=== PATIENT | male | born 1985 | race Caucasian/White ===

== ENCOUNTER 2017-06-07 21:48 | Emergency (ER) | payer OTHER ==
--- NOTE | 2017-06-07 22:02 | ERPHSYRPT ---
- History of Present Illness Time Seen by Provider: 06/07/17 21:58 Historian: patient Physician History: 31-year-old male without any significant past medical history was working in his basement and while crawling he started having a right side abdominal pain around the belt line. So he came to the emergency room. He denies any nausea, vomiting, diarrhea, constipation, or any other symptoms. Timing/Duration: today Activities at Onset: activity Quality: cramping Abdominal Pain Onset Location: generalized abdomen Pain Radiation: no radiation Severity of Pain-Max: mild Severity of Pain-Current: mild Modifying Factors: Improves With: nothing Associated Symptoms: denies symptoms Previous symptoms: no prior history Allergies/Adverse Reactions: cyclobenzaprine HCl [From Flexeril] Allergy (Intermediate, Verified 11/04/14 19: 26) Swelling Sulfa (Sulfonamide Antibiotics) Allergy (Intermediate, Verified 11/04/14 19:26) Swelling Hx Tetanus, Diphtheria Vaccination/Date Given: Yes Hx Influenza Vaccination/Date Given: No Hx Pneumococcal Vaccination/Date Given: No - Review of Systems Constitutional: No Fever, No Chills Eyes: No Symptoms Ears, Nose, & Throat: No Symptoms Respiratory: No Cough, No Dyspnea Cardiac: No Chest Pain, No Edema, No Syncope Abdominal/Gastrointestinal: Abdominal Pain, No Nausea, No Vomiting, No Diarrhea Genitourinary Symptoms: No Dysuria Musculoskeletal: No Back Pain, No Neck Pain Skin: No Rash Neurological: No Dizziness, No Focal Weakness, No Sensory Changes Psychological: No Symptoms Endocrine: No Symptoms All Other Systems: Reviewed and Negative - Past Medical History Pertinent Past Medical History: No - Past Surgical History Past Surgical History: No - Social History Smoking Status: Never smoker Exposure to second hand smoke: No Drug Use: none Patient Lives Alone: No - Physical Exam General Appearance: no apparent distress, alert Eye Exam: PERRL/EOMI, eyes nml inspection Ears, Nose, Throat Exam: normal ENT inspection, pharynx normal, moist mucous membranes Neck Exam: normal inspection, non-tender, supple, full range of motion Respiratory Exam: normal breath sounds, lungs clear, No respiratory distress Cardiovascular Exam: regular rate/rhythm, normal heart sounds Gastrointestinal/Abdomen Exam: soft, No tenderness, No mass Back Exam: normal inspection, normal range of motion, No CVA tenderness, No vertebral tenderness Extremity Exam: normal inspection, normal range of motion, pelvis stable Neurologic Exam: alert, oriented x 3, cooperative, normal mood/affect, nml cerebellar function, sensation nml, No motor deficits Skin Exam: normal color, warm, dry - Course Nursing assessment & vital signs reviewed: Yes - Progress Progress: unchanged Counseled pt/family regarding: diagnosis, need for follow-up - Departure Time of Disposition: 22:01 Departure Disposition: Home Clinical Impression: Strain of abdominal muscle Qualifiers: Encounter type: initial encounter Qualified Code(s): S39.011A - Strain of muscle, fascia and tendon of abdomen, initial encounter Condition: Stable Critical Care Time: No Referrals: SAMMIE MANJARREZ [Primary Care Provider] - Instructions: Abdominal Muscle Strain Additional Instructions: Use abdominal binder for next 2-3 days, while working. Use stool softener if you have a constipation problem because that can increase your pain in the muscle strain area. Tried to avoid coughing too hard. If symptoms get worse. Contact your primary care physician for further workup.
[2017-06-07 22:04] VITALS: BP 136/88; PULSE 88; O2SAT 98
[2017-06-07] MEDS ORDERED: Lopressor 25MG Tab PO ONE (22:05)
[2017-06-07] MEDS ORDERED: Lopressor 25MG Tab ONE (22:18)
== END 2017-06-07 22:15 | disposition home or self-care (01) ==
LOC: ED 21:48
DX: S39.011A Strain of muscle, fascia and tendon of abdomen, initial encounter (principal); R10.9 Unspecified abdominal pain
CPT/HCPCS: 99283; L0625; A9270-GY

== ENCOUNTER 2017-06-09 00:25 | Emergency (ER) | payer OTHER ==
[2017-06-09 00:36] VITALS: BP 142/87; PULSE 97; O2SAT 100
--- NOTE | 2017-06-09 00:48 | ERPHSYRPT ---
- History of Present Illness Time Seen by Provider: 06/09/17 00:46 Historian: patient Exam Limitations: no limitations Physician History: c/o abdominal pain and strain since yesterday, patient was in ER yesterday with same complaints and was diagnosed with abdominal strain, Timing/Duration: yesterday Activities at Onset: none Quality: cramping Abdominal Pain Onset Location: generalized abdomen Pain Radiation: no radiation Severity of Pain-Max: mild Severity of Pain-Current: mild Modifying Factors: Improves With: nothing Associated Symptoms: denies symptoms Allergies/Adverse Reactions: cyclobenzaprine HCl [From Flexeril] Allergy (Intermediate, Verified 11/04/14 19: 26) Swelling Sulfa (Sulfonamide Antibiotics) Allergy (Intermediate, Verified 11/04/14 19:26) Swelling Hx Tetanus, Diphtheria Vaccination/Date Given: Yes Hx Influenza Vaccination/Date Given: No Hx Pneumococcal Vaccination/Date Given: No - Review of Systems Constitutional: No Fever, No Chills Eyes: No Symptoms Ears, Nose, & Throat: No Symptoms Respiratory: No Cough, No Dyspnea Cardiac: No Chest Pain, No Edema, No Syncope Abdominal/Gastrointestinal: Abdominal Pain, No Nausea, No Vomiting, No Diarrhea Genitourinary Symptoms: No Dysuria Musculoskeletal: No Back Pain, No Neck Pain Skin: No Rash Neurological: No Dizziness, No Focal Weakness, No Sensory Changes Psychological: No Symptoms Endocrine: No Symptoms All Other Systems: Reviewed and Negative - Past Medical History Pertinent Past Medical History: No - Past Surgical History Past Surgical History: No - Social History Smoking Status: Never smoker Exposure to second hand smoke: No Drug Use: none Patient Lives Alone: No - Nursing Vital Signs Nursing Vital Signs: Initial Vital Signs Temperature 97.9 F 06/09/17 00:35 Pulse Rate 97 H 06/09/17 00:35 Respiratory Rate 18 06/09/17 00:35 Blood Pressure 142/87 06/09/17 00:35 O2 Sat by Pulse Oximetry 100 06/09/17 00:35 Pain Scale Pain Intensity 0 - Physical Exam General Appearance: no apparent distress, alert Eye Exam: PERRL/EOMI, eyes nml inspection Ears, Nose, Throat Exam: normal ENT inspection, pharynx normal, moist mucous membranes Neck Exam: normal inspection, non-tender, supple, full range of motion Respiratory Exam: normal breath sounds, lungs clear, No respiratory distress Cardiovascular Exam: regular rate/rhythm, normal heart sounds Gastrointestinal/Abdomen Exam: soft, No tenderness, No mass Back Exam: normal inspection, normal range of motion, No CVA tenderness, No vertebral tenderness Extremity Exam: normal inspection, normal range of motion, pelvis stable Neurologic Exam: alert, oriented x 3, cooperative, normal mood/affect, nml cerebellar function, sensation nml, No motor deficits Skin Exam: normal color, warm, dry SpO2: 100 Oxygen Delivery: Room Air - Course Nursing assessment & vital signs reviewed: Yes - Progress Progress: pain not gone completely Counseled pt/family regarding: diagnosis, need for follow-up - Departure Time of Disposition: 00:47 Departure Disposition: Home Clinical Impression: Strain of abdominal muscle Qualifiers: Encounter type: subsequent encounter Qualified Code(s): S39.011D - Strain of muscle, fascia and tendon of abdomen, subsequent encounter Condition: Stable Critical Care Time: No Referrals: SAMMIE MANJARREZ [Primary Care Provider] - Instructions: Abdominal Muscle Strain
== END 2017-06-09 00:57 | disposition home or self-care (01) ==
LOC: ED 00:25
DX: S39.011D Strain of muscle, fascia and tendon of abdomen, subsequent encounter (principal); X58.XXXD Exposure to other specified factors, subsequent encounter; R10.9 Unspecified abdominal pain
CPT/HCPCS: 99281

== ENCOUNTER 2018-08-21 19:42 | Emergency (ER) | payer MEDICAID, OTHER ==
[2018-08-21] MEDS ORDERED: Pepcid 20 MG VIAL IV ONE ×2 (20:23→20:47)
[2018-08-21] MEDS ORDERED: Sodium Chloride 0.9% 1000 ML 1,000 ML IV SCH (20:30)
[2018-08-21] MEDS ORDERED: Sodium Chloride 0.9% 1000 ML 1,000 ML ONE (20:47)
[2018-08-21 20:58] LABS: BASOPHIL % 0.4 % (0.0-0.4); Basophil (Absolute #) 0.04 (0-0.4); Eosinophil % 2.7 % (0.00-5.0); Eosinophil (Absolute #) 0.29 (0-0.5); Granulocyte Absolute (ANC) 6.36 (1.4-6.9); Granulocytes % 58.8 % (36.0-66.0); Hematocrit 42.4 % (42-50); Hemoglobin 13.8 gm/dl (12.5-18.0); Lymphocyte (Absolute #) 3.16 (1.0-4.6); Lymphocytes % 29.3 % (24.0-44.0); Mean Cell Volume 89.1 fl (78-100); Mean Corpuscular Hgb Concent. 32.5 g/dl (32-36); Mean Platelet Volume 9.9 fl (6-9.5); Monocyte (Absolute #) 0.95 (0.0-1.3); Monocytes % 8.8 % (0.0-12.0); Platelet Count 281 K/mm3 (150-450); Red Blood Count 4.76 M/mm3 (4.1-5.6); Red Cell Distribution Width 12.7 % (11.5-14.0); White Blood Count 10.8 K/mm3 (4.0-10.5)
[2018-08-21 21:12] LABS: ANION GAP 12.9 MEQ/L (5-15); BLOOD UREA NITROGEN 16 mg/dL (9-20); CHLORIDE 103 mmol/L (98-107); Calcium 9.1 mg/dL (8.4-10.2); Carbon Dioxide 31 mmol/L (22-30); Creatinine 1 0.97 mg/dL (0.66-1.25); Glucose 97 mg/dL (74-106); Potassium 4.1 mmol/L (3.5-5.1); SODIUM 143 mmol/L (137-145)
[2018-08-21] MEDS ORDERED: ROCEPHIN 1 Gm-D5w 50 ml Bag** 1 G/50 ML IVPB IV STA (21:33)
[2018-08-21] MEDS ORDERED: ROCEPHIN 1 Gm-D5w 50 ml Bag** 1 G/50 ML IVPB IV ONE (21:36)
--- NOTE | 2018-08-21 22:16 | ERPHSYRPT ---
- History of Present Illness Time Seen by Provider: 08/21/18 20:10 Historian: patient Exam Limitations: clinical condition Patient Subjective Stated Complaint: pt reports sore throat for one week, states that 2 days ago he noticed some white pathes to the throat. pt also reports some pain with inspiration. Triage Nursing Assessment: pt is aox3, pupils perrl, white plaques noted to the throat and uvula, throat is reddened, afebrile, resps easy and non labored, lung sounds are clear and equal throughout all quispe, radial pulses strong and equal, pt skin pink warm dry. cap refill < 3 secs. Physician History: PATIENT COMPLAINS OF SORETHROAT X 2 DAYS, ASSOCIATED WITH RIGHT SIDED CHEST PAIN AFTER DRINKING BEVERAGES. DENIES DYSPNEA, COUGH, FEVER, OR CHILLS, RADIATION OF PAIN TO NECK, JAW OR ARMS. Timing/Duration: day(s) Activities at Onset: none Quality: sharpness Location: substernal Chest Pain Radiation: no radiation Severity of Pain-Max: mild Severity of Pain-Current: mild Modifying Factors: Improves With: other (SWALLOWING BEVERAGES) Associated Symptoms: other (SORETHROAT) Nitro Today/Relief: no nitro taken today Aspirin Treatment Today: no aspirin today Allergies/Adverse Reactions: cyclobenzaprine HCl [From Flexeril] Allergy (Intermediate, Verified 11/04/14 19: 26) Swelling Sulfa (Sulfonamide Antibiotics) Allergy (Intermediate, Verified 11/04/14 19:26) Swelling Hx Tetanus, Diphtheria Vaccination/Date Given: Yes Hx Influenza Vaccination/Date Given: No Hx Pneumococcal Vaccination/Date Given: No Immunizations Up to Date: Yes - Review of Systems Constitutional: No Fever, No Chills Eyes: No Symptoms Ears, Nose, & Throat: Throat Pain Respiratory: No Symptoms, No Cough, No Dyspnea Cardiac: Chest Pain (AFTER DRINKING BEVERAGES), No Edema, No Syncope Abdominal/Gastrointestinal: No Symptoms, No Abdominal Pain, No Nausea, No Vomiting, No Diarrhea Genitourinary Symptoms: No Symptoms, No Dysuria Musculoskeletal: No Symptoms, No Back Pain, No Neck Pain Skin: No Rash Neurological: No Dizziness, No Focal Weakness, No Sensory Changes Psychological: No Symptoms Endocrine: No Symptoms All Other Systems: Reviewed and Negative - Past Medical History Pertinent Past Medical History: No - Past Surgical History Past Surgical History: No - Social History Smoking Status: Never smoker Exposure to second hand smoke: Yes Drug Use: none Patient Lives Alone: No - Nursing Vital Signs Nursing Vital Signs: Initial Vital Signs Temperature 98.4 F 08/21/18 19:57 Pulse Rate 90 08/21/18 19:57 Respiratory Rate 20 08/21/18 19:57 Blood Pressure 133/94 08/21/18 19:57 O2 Sat by Pulse Oximetry 99 08/21/18 19:57 Pain Scale Pain Intensity 5 - Physical Exam General Appearance: no apparent distress Eye Exam: PERRL/EOMI Ears, Nose, Throat Exam: pharyngeal erythema, other (WITH PETECHIAE EXUDATE OVER TONSILLS, AND UVULA) Respiratory Exam: normal breath sounds Cardiovascular Exam: regular rate/rhythm, normal heart sounds Extremity Exam: normal inspection, normal range of motion Neurologic Exam: alert, oriented x 3, cooperative, normal mood/affect, sensation nml, No motor deficits SpO2: 96 - Course EKG Interpreted by Me: RATE, Sinus Rhythm, NORMAL AXIS (RATE 89) - Radiology Exams Chest X-ray Interpretation: Interpreted by me, Negative Ordered Tests: Active Orders 24 hr Category Date Time Status EKG-ER Only STAT Care 08/21/18 20:22 Active IV Insertion STAT Care 08/21/18 20:22 Active CHEST 1 VIEW (PORTABLE) Stat Exams 08/21/18 20:23 Taken BMP Stat Lab 08/21/18 20:40 Completed CBC W DIFF Stat Lab 08/21/18 20:40 Completed TROPONIN Q3H Lab 08/21/18 20:40 Completed TROPONIN Q3H Lab 08/21/18 23:30 Ordered TROPONIN Q3H Lab 08/22/18 02:30 Ordered TROPONIN Q3H Lab 08/22/18 05:30 Ordered TROPONIN Q3H Lab 08/22/18 08:30 Ordered Wet Prep Stat Lab 08/21/18 20:43 Ordered Medication Summary Generic Name Dose Route Start Last Admin Trade Name Freq PRN Reason Stop Dose Admin Sodium Chloride 1,000 mls @ 100 mls/hr 08/21/18 20:30 08/21/18 20:54 Sodium Chloride 0.9% 1000 Ml IV 09/20/18 20:29 100 mls/hr .Q10H MELISSA Administration Discontinued Medications Generic Name Dose Route Start Last Admin Trade Name Freq PRN Reason Stop Dose Admin Famotidine 20 mg 08/21/18 20:23 08/21/18 20:54 Pepcid 20 Mg Vial IV 08/21/18 20:24 20 mg STAT ONE Administration Famotidine Confirm 08/21/18 20:47 Pepcid 20 Mg Vial Administered 08/21/18 20:48 Dose 20 mg IV .STK-MED ONE Ceftriaxone Sodium/Dextrose 1 g in 50 mls @ 100 mls/hr 08/21/18 21:33 21:37 Rocephin 1 Gm-D5w 50 Ml Bag IV 08/21/18 22:02 100 ml/hr STAT STA 100 mls/hr Administration Ceftriaxone Sodium/Dextrose Confirm 08/21/18 21:36 Rocephin 1 Gm-D5w 50 Ml Bag Administered 08/21/18 21:37 Dose 1 g in 50 mls @ ud IV .STK-MED ONE Lab/Rad Data: Laboratory Result Diagrams 08/21/18 20:40 08/21/18 20:40 Laboratory Results 08/21/18 08/21/18 08/21/18 Range/Units 20:40 20:40 20:40 WBC 10.8 H (4.0-10.5) K/mm3 RBC 4.76 (4.1-5.6) M/mm3 Hgb 13.8 (12.5-18.0) gm/dl Hct 42.4 (42-50) % MCV 89.1 (78-100) fl MCH 29.0 (26-32) pg MCHC 32.5 (32-36) g/dl RDW 12.7 (11.5-14.0) % Plt Count 281 (150-450) K/mm3 MPV 9.9 H (6-9.5) fl Gran % 58.8 (36.0-66.0) % Eos # (Auto) 0.29 (0-0.5) Absolute Lymphs (auto) 3.16 (1.0-4.6) Absolute Monos (auto) 0.95 (0.0-1.3) Lymphocytes % 29.3 (24.0-44.0) % Monocytes % 8.8 (0.0-12.0) % Eosinophils % 2.7 (0.00-5.0) % Basophils % 0.4 (0.0-0.4) % Absolute Granulocytes 6.36 (1.4-6.9) Basophils # 0.04 (0-0.4) Sodium 143 (137-145) mmol/L Potassium 4.1 (3.5-5.1) mmol/L Chloride 103 (98-107) mmol/L Carbon Dioxide 31 H (22-30) mmol/L Anion Gap 12.9 (5-15) MEQ/L BUN 16 (9-20) mg/dL Creatinine 0.97 (0.66-1.25) mg/dL Estimated GFR > 60.0 ML/MIN Glucose 97 (74-106) mg/dL Calcium 9.1 (8.4-10.2) mg/dL Troponin I < 0.012 (0.000-0.034) ng/mL Group A Strep Antibody (NEGATIVE) 08/21/18 Range/Units 20:25 WBC (4.0-10.5) K/mm3 RBC (4.1-5.6) M/mm3 Hgb (12.5-18.0) gm/dl Hct (42-50) % MCV (78-100) fl MCH (26-32) pg MCHC (32-36) g/dl RDW (11.5-14.0) % Plt Count (150-450) K/mm3 MPV (6-9.5) fl Gran % (36.0-66.0) % Eos # (Auto) (0-0.5) Absolute Lymphs (auto) (1.0-4.6) Absolute Monos (auto) (0.0-1.3) Lymphocytes % (24.0-44.0) % Monocytes % (0.0-12.0) % Eosinophils % (0.00-5.0) % Basophils % (0.0-0.4) % Absolute Granulocytes (1.4-6.9) Basophils # (0-0.4) Sodium (137-145) mmol/L Potassium (3.5-5.1) mmol/L Chloride (98-107) mmol/L Carbon Dioxide (22-30) mmol/L Anion Gap (5-15) MEQ/L BUN (9-20) mg/dL Creatinine (0.66-1.25) mg/dL Estimated GFR ML/MIN Glucose (74-106) mg/dL Calcium (8.4-10.2) mg/dL Troponin I (0.000-0.034) ng/mL Group A Strep Antibody NEGATIVE (NEGATIVE) - Progress Progress: re-examined Progress Note: 08/21/18 22:17 IV NORMAL SALINE 200ML/HR, PEPCID 20MG AND ROCEPHIN 1GM IVPB 08/21/18 22:24, ALL LABS REVIEWED AND ARE NORMAL, ORAL WET PREP NEGATIVE OR YEAST Counseled pt/family regarding: lab results, diagnosis, need for follow-up, rad results - Departure Time of Disposition: 22:30 Departure Disposition: Home Clinical Impression: ACUTE PHARYNGITIS, Reflux esophagitis, Oral pharyngeal candidiasis Condition: Stable Critical Care Time: No Referrals: SAMMIE MANJARREZ [Primary Care Provider] - Additional Instructions: BEGIN PEPCID 20MG TWICE DAILY FOR 1 MONTH. ANTIBIOTIC ZITHROMAX 250MG, 2 TABLETS DAY 1 FOLLOWED BY 1 TABLET DAILY FOR 4 DAYS. DIFLUCAN 150MG DAILY FOR 3 DAYS. CONSULT YOUR PRIMARY CARE PROVIDER FOR FOLLOWUP. Prescriptions: Azithromycin 250 mg [Zithromax 250 MG TABLET] 250 mg PO ZPACK #6 tablet Famotidine 20 mg [Pepcid 20 MG] 20 mg PO BID #60 tablet Fluconazole [Diflucan ] 150 mg PO DAILY #3 tablet
[2018-08-21 22:36] VITALS: BP 151/77; PULSE 96; O2SAT 98
--- NOTE | 2018-08-22 08:57 | XRAY ---
Indication: Chest pain. Comparison: None Portable chest demonstrates normal heart and lungs. Bony thorax intact with minimal scoliosis.
== END 2018-08-21 22:38 | disposition home or self-care (01) ==
LOC: ED 19:42
DX: J02.9 Acute pharyngitis, unspecified (principal); K21.9 Gastro-esophageal reflux disease without esophagitis; B37.0 Candidal stomatitis
CPT/HCPCS: 36000; 36415; 71045; 80048; 84484; 85025; 87651; 93005; 96360; 96361; 96365; 96374; 99284; J0696

== ENCOUNTER 2018-12-01 13:28 | Emergency (ER) | payer MEDICAID ==
--- NOTE | 2018-12-01 13:51 | ERPHSYRPT ---
- History of Present Illness Time Seen by Provider: 12/01/18 13:44 Source: patient Exam Limitations: no limitations Patient Subjective Stated Complaint: Pt states "I was out fishing yesterday and I knelt down in the grass and it felt like I got bit on my left leg. Today my moore and foot are swollen. I am kind of anxious about all of it." Triage Nursing Assessment: Pt presnted alert and oriented X 3, skin pwd. Pt ambulates with an upright steady gait, able to speak in clear full sentences. Pt left moore slightly swollen, slightly red. Physician History: 33-year-old white male arrives with complaint of insect bite to his left lower leg symptoms since yesterday he states he has erythema to the area he states he was out fishing and felt something bite him 2 times. He denies any other complaints. Past medical history is negative. Past surgical history is negative. Social history patient chews tobacco he denies alcohol or illicit drug use. Patient does state his tetanus is not up-to-date Method of Injury: other (possible insect bite x2 left lower leg) Occurred: yesterday Quality: constant Severity of Pain-Max: mild Severity of Pain-Current: mild Lower Extremities Pain: leg: left Modifying Factors: Improves With: nothing Associated Symptoms: other (erythema and pain) Allergies/Adverse Reactions: cyclobenzaprine HCl [From Flexeril] Allergy (Intermediate, Verified 11/04/14 19: 26) Swelling Sulfa (Sulfonamide Antibiotics) Allergy (Intermediate, Verified 11/04/14 19:26) Swelling Hx Tetanus, Diphtheria Vaccination/Date Given: No Hx Influenza Vaccination/Date Given: No Hx Pneumococcal Vaccination/Date Given: No Immunizations Up to Date: Yes - Review of Systems Constitutional: No Fever, No Chills Eyes: No Symptoms Ears, Nose, & Throat: No Symptoms Respiratory: No Cough, No Dyspnea Cardiac: No Chest Pain, No Edema, No Syncope Abdominal/Gastrointestinal: No Abdominal Pain, No Nausea, No Vomiting, No Diarrhea Genitourinary Symptoms: No Dysuria Musculoskeletal: Other (iinsect bite to left lower leg) Skin: Other (iinsect bite with erythema left lower leg) Neurological: No Dizziness, No Focal Weakness, No Sensory Changes Psychological: No Symptoms Endocrine: No Symptoms All Other Systems: Reviewed and Negative - Past Medical History Pertinent Past Medical History: No - Past Surgical History Past Surgical History: No - Social History Smoking Status: Never smoker Exposure to second hand smoke: No Drug Use: none Patient Lives Alone: No - Nursing Vital Signs Nursing Vital Signs: Initial Vital Signs Temperature 98.8 F 12/01/18 13:31 Pulse Rate 126 H 12/01/18 13:31 Respiratory Rate 20 12/01/18 13:31 Blood Pressure 154/105 12/01/18 13:31 O2 Sat by Pulse Oximetry 98 12/01/18 13:31 Pain Scale Pain Intensity 5 - Physical Exam General Appearance: alert Eyes, Ears, Nose, Throat Exam: moist mucous membranes Neck Exam: non-tender, supple Cardiovascular/Respiratory Exam: chest non-tender, normal breath sounds, regular rate/rhythm, no respiratory distress Gastrointestinal/Abdominal Exam: non-tender, guarding Back Exam: normal inspection, No vertebral tenderness Hips Exam: bilateral: non-tender, normal inspection, normal range of motion, no evidence of injury Legs Exam: right leg: normal inspection, left leg: no evidence of injury, other (3 x 4 cm area of erythema and mild edema left lateral lower leg), bilateral leg : non-tender, normal range of motion Knees Exam: bilateral knee: non-tender, normal inspection, normal range of motion, no evidence of injury Ankle Exam: bilateral ankle: non-tender, normal inspection, normal range of motion, no evidence of injury Foot Exam: bilateral foot: non-tender, normal inspection, normal range of motion , no evidence of injury DTR - Lower Extremities Exam: ankle (R): 2+, ankle (L): 2+ Neuro/Tendon Exam: normal sensation, normal motor functions Mental Status Exam: alert, oriented x 3, cooperative Skin Exam: other (33 x 4 cm area of erythema left lateral lower leg) SpO2 Interpretation: normal (98%) SpO2: 98 - Course Nursing assessment & vital signs reviewed: Yes Ordered Tests: Medication Summary Discontinued Medications Generic Name Dose Route Start Last Admin Trade Name Freq PRN Reason Stop Dose Admin Cephalexin HCl 500 mg 12/01/18 13:45 Keflex 500 Mg PO 12/01/18 13:46 STAT ONE Diphtheria/Tetanus/Acell Pertussis 0.5 ml 12/01/18 13:44 Adacel Vial IM 12/01/18 13:45 .ONCE ONE - Progress Progress: improved Progress Note: 12/01/18 13:48 This is a 33-year-old white male he arrives with complaints of possible insect bite to his left lower lateral leg symptoms since yesterday he has some erythema and in mild edema to the area. Patient states she was out fishing and felt something bite him x2. Patient has approximately 3 x 4 cm area of erythema with slight edema on the left lower leg. He has full range of motion to the left hip ankle foot and knee toes. Good capillary refill to all toes dorsal pedal posterior tibial pulses are intact. Will go ahead and give patient DTaP injection. Also will place patient on Keflex 500 mg orally every 6 hours x7 days. He is to place cold packs to area 24-48 hours. He is to take Benadryl 2 mg orally every 6 hours for 2-3 days hold for somnolence. - Departure Departure Disposition: Home Clinical Impression: Insect bite of left leg Qualifiers: Encounter type: initial encounter Qualified Code(s): S80.862A - Insect bite ( nonvenomous), left lower leg, initial encounter Condition: Fair Critical Care Time: No Referrals: SAMMIE MANJARREZ [Primary Care Provider] - Additional Instructions: Return home. Cold packs to area 24-48 hours. Tylenol every 4 hours or Motrin every 6 hours as needed for pain. Benadryl 50 mg orally every 6 hours for 2-3 days (hold for somnolence).. Keflex as prescribed. Followup with your family symptoms worse, no better in 48 hours or persist longer than one week. Return for acute distress severe symptoms or for any problems. Prescriptions: Cephalexin Mh 500 mg [Keflex 500 mg] 500 mg PO Q6H #28 capsule
[2018-12-01] MEDS ORDERED: Adacel Vial IM ONE (14:02)
[2018-12-01] MEDS ORDERED: KEFLEX 500 MG ONE (14:02)
[2018-12-01] MEDS: Adacel Vial IM ONE (14:05)
[2018-12-01] MEDS: KEFLEX 500 MG PO ONE (14:05)
[2018-12-01 14:08] VITALS: BP 134/88; PULSE 99; O2SAT 96
== END 2018-12-01 14:16 | disposition home or self-care (01) ==
LOC: ED 13:28
DX: M79.89 Other specified soft tissue disorders (principal); S80.862A Insect bite (nonvenomous), left lower leg, initial encounter
CPT/HCPCS: 90471; 90715; 99283; A9270-GY

== ENCOUNTER 2022-10-01 20:43 | Emergency (ER) | payer BC, OTHER ==
[2022-10-01] MEDS ORDERED: PROVENTIL 2.5 MG/3 ML NEB IH ONE ×2 (21:06→21:16)
--- NOTE | 2022-10-01 21:11 | ERPHSYRPT ---
- History of Present Illness Source: patient Exam Limitations: no limitations Patient Subjective Stated Complaint: pt states I thought I could fight off this cough but its moving deeper in my chest Triage Nursing Assessment: pt ambulated into the er; pt is axo x4; c/o cough; pt states pain with coughing; pt states SOB at times; skin PDW; hypertensive Physician History: 36 yo WM w cough x 2 days. Pt denies fever/coryza/ST/otalgia/N/V/D. He does not smoke. Chest pain is denied. Timing/Duration: day(s) (2 days) Cough Quality/Degree: dry cough Possible Cause: no prior episodes Associated Symptoms: cough Allergies/Adverse Reactions: cyclobenzaprine HCl [From Flexeril] Allergy (Intermediate, Verified 10/01/22 20:50) Swelling Sulfa (Sulfonamide Antibiotics) Allergy (Intermediate, Verified 10/01/22 20:50) Swelling Hx Tetanus, Diphtheria Vaccination/Date Given: No Hx Influenza Vaccination/Date Given: No Hx Pneumococcal Vaccination/Date Given: No Travel Risk - International Travel Have you traveled outside of the country in past 3 weeks: No - Coronavirus Screening Are you exhibiting any of the following symptoms?: Yes Symptoms: Cough: New Onset Close contact with a COVID-19 positive Pt in past 14-21 Days: No - Vaccine Status Have you recieved a Covid-19 vaccination: Yes [employer]: Moderna - Vaccination Dates Date of 2cond Vaccination (if applicable): never received second shot - Review of Systems Constitutional: No Symptoms Eyes: No Symptoms Ears, Nose, & Throat: No Symptoms Respiratory: No Symptoms, Cough Cardiac: No Symptoms Abdominal/Gastrointestinal: No Symptoms Genitourinary Symptoms: No Symptoms Musculoskeletal: No Symptoms Skin: No Symptoms Neurological: No Symptoms Psychological: No Symptoms Endocrine: No Symptoms Hematologic/Lymphatic: No Symptoms Immunological/Allergic: No Symptoms - Past Medical History Pertinent Past Medical History: No - Past Surgical History Past Surgical History: No - Social History Smoking Status: Never smoker Exposure to second hand smoke: Yes Drug Use: none Patient Lives Alone: No - Nursing Vital Signs Nursing Vital Signs: Initial Vital Signs Temperature 98.6 F 10/01/22 20:52 Pulse Rate 80 10/01/22 20:52 Respiratory Rate 20 10/01/22 20:52 Blood Pressure 144/92 10/01/22 20:52 O2 Sat by Pulse Oximetry 95 04/25/23 20:52 Pain Scale Pain Intensity 3 Hypertensive - Physical Exam General Appearance: no apparent distress Eye Exam: PERRL/EOMI, eyes nml inspection Ears, Nose, Throat Exam: normal ENT inspection, TMs normal, pharynx normal, moist mucous membranes Neck Exam: normal inspection, non-tender, supple, full range of motion, No meningismus, No mass, No Brudzinski, No Kernig's Respiratory Exam: airway intact, wheezing (Scattered expiratory wheezes B), No respiratory distress Cardiovascular Exam: regular rate/rhythm, normal heart sounds, normal peripheral pulses, capillary refill <2 sec, No murmur Gastrointestinal/Abdomen Exam: soft, normal bowel sounds, No tenderness Back Exam: normal inspection, normal range of motion, No CVA tenderness, No vertebral tenderness Extremity Exam: normal inspection, normal range of motion Neurologic Exam: alert, oriented x 3, cooperative, 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 tested, normal mood/affect, nml cerebellar function, nml station & gait, sensation nml Skin Exam: normal color, warm, dry Lymphatic Exam: No adenopathy SpO2 Interpretation: normal SpO2: 95 O2 Delivery: Room Air - Course Nursing assessment & vital signs reviewed: Yes - Radiology Exams Chest X-ray Interpretation: Interpreted by me (NAD) Ordered Tests: Active Orders 24 hr Category Date Time Status CHEST 2 VIEWS (PA AND LAT) Stat Exams 10/01/22 21:07 Taken Respiratory Therapy Assessment DAILY RT 10/01/22 21:13 Completed Medication Summary Discontinued Medications Generic Name Dose Route Start Last Admin Trade Name Justyn PRN Reason Stop Dose Admin Albuterol Sulfate 2.5 mg 10/01/22 21:06 10/01/22 21:20 Albuterol Sulfate 2.5 Mg/3 Ml Neb IH 10/01/22 21:07 2.5 mg STAT ONE Administration Albuterol Sulfate Confirm 10/01/22 21:16 Albuterol Sulfate 2.5 Mg/3 Ml Neb Administered 10/01/22 21:17 Dose 2.5 mg IH .STK-MED ONE Dexamethasone Sodium Phosphate 10 mg 10/01/22 22:21 10/01/22 22:42 Dexamethasone Sod Phosphate 10 Mg/Ml IM 10/01/22 22:22 10 mg STAT ONE Administration Dexamethasone Sodium Phosphate Confirm 10/01/22 22:41 Dexamethasone Sod Phosphate 10 Mg/Ml Administered 10/01/22 22:42 Dose 10 mg .ROUTE .STK-MED ONE Doxycycline Hyclate 100 mg 10/01/22 22:29 10/01/22 22:42 Doxycycline Hyclate 100 Mg Tablet PO 10/01/22 22:30 100 mg STAT ONE Administration Doxycycline Hyclate Confirm 10/01/22 22:41 Doxycycline Hyclate 100 Mg Tablet Administered 10/01/22 22:42 Dose 100 mg .ROUTE .STK-MED ONE Lab/Rad Data: Laboratory Results 10/01/22 Range/Units 21:10 Influenza Type A Ag NEGATIVE (NEGATIVE) Influenza Type B Ag NEGATIVE (NEGATIVE) RSV (PCR) NEGATIVE (NEGATIVE) SARS-CoV-2 (PCR) NEGATIVE (NEGATIVE) - Progress Progress: improved Air Movement: good Progress Note: 10/01/22 22:31 Nursing note and vital signs reviewed No food or housing insecurities noted CXR neg per ER read Fluvid negative Albuterol neb treatment w decreased wheezing, but pt w rales at [place] which is most likely pneumonia 10mg IM Decadron 100mg po Doxycycline Counseled pt/family regarding: lab results, diagnosis, need for follow-up, rad results Medical Desision Making - Diagnostic Testing Diagnostic test were ordered, analyzed, and reviewed by me: Yes Radiological Interpretation: Interpreted by me - Risk of complications The pt has a mod risk of morbidity or mortality based on: Need for prescription drug management - Departure Departure Disposition: Home Clinical Impression: Pneumonia, Reactive airway disease Condition: Stable Critical Care Time: No Referrals: DOCTOR,NO FAMILY [Primary Care Provider] - Follow up/PCP as directed Instructions: Pneumonia, Adult (DC) Additional Instructions: Follow up with your family MD in2-3 days Continue with Doxycycline twice a day for 10 days Albuterol inhaler 2 puffs every 4 hours Return to ER for worsening of condition Prescriptions: Albuterol Sulfate [Proventil Hfa] 2 puffs IH Q4H PRN PRN #1 inh PRN Reason: Shortness Of Breath/Wheezing Doxycycline Monohydrate 100 mg PO BID #20 cap
[2022-10-01 21:52] LABS: INFLUENZA A NEGATIVE (NEGATIVE); INFLUENZA B NEGATIVE (NEGATIVE); RESPIRATORY SYNCTIAL VIRUS NEGATIVE (NEGATIVE); SARS-CoV-2 Xpert Express NEGATIVE (NEGATIVE)
[2022-10-01] MEDS ORDERED: DECADRON 10MG INJ. IM ONE (22:21)
[2022-10-01] MEDS ORDERED: Vibramycin 100 MG PO ONE (22:29)
[2022-10-01] MEDS ORDERED: DECADRON 10MG INJ. ONE (22:41)
[2022-10-01] MEDS ORDERED: Vibramycin 100 MG ONE (22:41)
[2022-10-01 22:49] VITALS: BP 118/85; PULSE 87
[2022-10-01 23:33] VITALS: O2SAT 95
--- NOTE | 2022-10-02 08:51 | XRAY ---
Indication: Cough. Comparison: March 11, 2022 PA/lateral chest remains inflated and clear. Heart not enlarged. Bony thorax intact. No new/acute findings.
== END 2022-10-01 22:57 | disposition home or self-care (01) ==
LOC: ED 20:43
DX: J18.9 Pneumonia, unspecified organism (principal); J45.909 Unspecified asthma, uncomplicated; R05.1 Acute cough
CPT/HCPCS: 0241U; 71046; 94640; 96372; 99283; J1100; J7609; A9270-GY